=== PATIENT | male | born 1955 | race Caucasian/White ===

== ENCOUNTER → 2017-08-14 | Outpatient (CLI) | payer BC ==
--- NOTE | 2017-08-15 08:27 | XCELERA REPORT ---
[address] [address] Transthoracic Echocardiogram Report Name: HANNA HERNANDEZ Age: 62 yrs Gender: Male : 1955 Patient Status: Outpatient Patient Location: [facility] Study Date: 08/14/2017 03:31 PM Height: 67 in Weight: 305 lb BSA: 2.4 m2 Procedure: A complete two-dimensional transthoracic echocardiogram was performed (2D, M-mode, spectral and color flow Doppler). The study was technically difficult with many images being suboptimal in quality. Reason For Study: EDEMA Ordering Physician: PACO HERNÁNDEZ Performed By: Anjum Hackett Interpretation Summary The left ventricular ejection fraction is normal. There is mild concentric left ventricular hypertrophy. The left ventricle is grossly normal size. LV diastolic function could not be adequately assessed. Wall motion cannot be accurately commented on, but no definite regional wall motion abnormalities noted. The right ventricle is mild to moderately dilated. The right ventricular systolic function is normal. The right atrium is mildly dilated. The left atrium is moderately dilated. There is no mitral valve stenosis. There is no mitral regurgitation noted. There is no aortic valve stenosis No aortic regurgitation is present. There is no tricuspid stenosis. There is a trace or physiologic amount of tricuspid regurgitation The aortic root is not well visualized but is probably normal size. The inferior vena cava was not well visualized There is no pericardial effusion. MMode/2D Measurements & Calculations RVDd: 3.5 cm LVIDd: 6.1 cmFS: 44.4 % Ao root diam: 3.7 cm IVSd: 1.4 cm LVIDs: 3.4 cmEDV(Teich): 186.3 ml LVPWd: 1.5 cmESV(Teich): 47.1 ml Ao root area: 10.9 cm2 EF(Teich): 74.7 % LVOT diam: 2.5 cm LVOT area: 4.8 cm2 Doppler Measurements & Calculations MV E max manuel: MV dec slope: Ao V2 max: LV V1 max P.2 cm/sec 340.8 cm/sec2 147.5 cm/sec 5.9 mmHg MV A max manuel: MV dec time: Ao max PG: LV V1 max: 78.1 cm/sec 0.20 sec 8.7 mmHg 121.4 cm/sec MV E/A: 0.86 ELIO(V,D): 4.0 cm2 PA V2 max: 113.3 cm/sec PA max P.1 mmHg Left Ventricle The left ventricle is grossly normal size. There is mild concentric left ventricular hypertrophy. The left ventricular ejection fraction is normal. LV diastolic function could not be adequately assessed. Wall motion cannot be accurately commented on, but no definite regional wall motion abnormalities noted. Right Ventricle The right ventricle is mild to moderately dilated. There is normal right ventricular wall thickness. The right ventricular systolic function is normal. Atria The right atrium is mildly dilated. The left atrium is moderately dilated. Interarterial septum not well visualized and not well dopplered. Cannot comment on ASD/PFO presence. Mitral Valve The mitral valve is not well visualized. There is no mitral valve stenosis. There is no mitral regurgitation noted. Aortic Valve The aortic valve is not well visualized secondary to technical limitations. There is no aortic valve stenosis. No aortic regurgitation is present. Tricuspid Valve The tricuspid valve is not well visualized secondary to technical limitations. There is no tricuspid stenosis. There is a trace or physiologic amount of tricuspid regurgitation. Pulmonic Valve The pulmonic valve is not well visualized. Great Vessels The aortic root is not well visualized but is probably normal size. The inferior vena cava was not well visualized. Effusions There is no pericardial effusion. : PACO HERNÁNDEZ > Jesus Ballard
== END ==
LOC: EDBD 15:00 → SP 15:22
PROVIDERS: ATTEND Registered Nurse
DX: R60.9 Edema, unspecified (principal)
CPT/HCPCS: 93306

== ENCOUNTER → 2017-11-20 | Outpatient (CLI) | payer BC ==
[2017-11-20 13:57] LABS: ARTERIAL BLOOD BASE EXCESS 5.6 mmol/L; ARTERIAL BLOOD H2CO3 1.61 mmol/L (1.05-1.35); ARTERIAL BLOOD HCO3 32.6 mmol/L (20-26); ARTERIAL BLOOD O2 SATURATION 87.5 % (94-98); ARTERIAL BLOOD PCO2 53.4 mmHg (35-45); ARTERIAL BLOOD PO2 53.6 mmHg (80-100); ARTERIAL BLOOD TOTAL CO2 34.3 mmol/L (23-27)
[2017-11-20 14:06] LABS: ARTERIAL BLOOD FIO2 ROOM AIR
[2017-11-21 14:41] LABS: ANTICHROMATIN AB <0.2 AI (0.0-0.9); CENTROMERE B AB <0.2 AI (0.0-0.9); JO-1 ANTIBODY (ANACOMP) <0.2 AI (0.0-0.9); RNP AB 0.2 AI (0.0-0.9); SCLERODERMA-70 ANTIBODIES 2.3 AI (0.0-0.9); SJOGREN'S ANTI-SS-B AB 0.3 AI (0.0-0.9); SJOGREN'S SS-A ANTIBODY <0.2 AI (0.0-0.9); SMITH AB ANA <0.2 AI (0.0-0.9)
[2017-11-21 17:37] LABS: CYTOPLASMIC (C-ANCA) <1:20 titer (Neg:<1:20)
[2017-11-22 14:51] LABS: ATYPICAL PANCA <1:20 titer (Neg:<1:20); DNA DOUBLE STRAND ANTIBODY ANA 1 IU/mL (0-9); PERINUCLEAR (P-ANCA) <1:20 titer (Neg:<1:20)
== END ==
LOC: OD 12:56
PROVIDERS: ATTEND Physician Assistant
DX: J44.9 Chronic obstructive pulmonary disease, unspecified (principal); R06.00 Dyspnea, unspecified
CPT/HCPCS: 36415; 82803; 86021; 86225; 86235; 86430